=== PATIENT | male | born 1965 | race Caucasian/White ===

== ENCOUNTER 2022-07-03 19:47 | Observation (INO) ==
[2022-07-03 20:00] VITALS: BMI 20.9
--- NOTE | 2022-07-03 20:07 | DR.AMS ---
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; now laying with eyes closed and opens them; speech is clear, answers all questions except year; knows day of week, 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, president, his ; has a chronic cough; has had chills but no fever for several days; no dysuria or hematuria Complaint Chief Complaint:: states" He has been throwing up today and he is really disoriented since this afternoon" COVID-19 Coronavirus risk:travel/contact w/high risk person: No Has patient experienced Coronavirus symptoms: No Source History Provided: Patient Mode of Arrival Mode of Arrival: Wheelchair Timing Onset of Chief Complaint: 07/03/22 PMH PMH Past Medical History: Yes Past Medical History: Depression, Dyslipidemia, GERD and Hypertension Past Surgical History: Yes Surgical History: Appendectomy, Bowel Resection, Ortho Surgery and Tonsillectomy Past Surgical History Comment: neck 8 weeks ago Family History History of Family Medical Conditions: No Social History Does patient currently use any type of tobacco product: Yes Have you used tobacco products in the last 12 months: Yes Type of Tobacco Use: Cigarettes Does any household member use tobacco: No Alcohol Use: DAILY Do you use any recreational Drugs:: No Lives With: Spouse Lives Where: Home Travel Risk Coronavirus risk:travel/contact w/high risk person: No Has patient experienced Coronavirus symptoms: No Infectious screening In the last 2 months have you had wt loss of >10#?: NO Have you had fever, night sweats or hemotysis?: No Have you traveled outside the country in the last 6 months?: No Isolation: Standard ROS Review of Systems Constitutional: See HPI and Chills Eyes: No Symptoms Reported ENTM: No Symptoms Reported Respiratoy: No Symptoms Reported Cardiovascular: No Symptoms Reported Gastrointestinal/Abdominal: See HPI, Nausea and Vomiting Genitourinary: No Symptoms Reported Musculoskeletal: No Symptoms Reported Integumentary: No Symptoms Reported Hematologic/Lymphatic: No Symptoms Reported Endocrine: No Symptoms Reported Psychiatric: No Symptoms Reported PE Vitals Vital Signs: Temp Pulse Resp BP BP Pulse Ox O2 Del Method 07/03/22 23:00 58 L 99 07/03/22 23:00 165/88 07/03/22 22:45 60 98 07/03/22 22:30 173/87 07/03/22 22:30 61 98 07/03/22 22:30 173/87 07/03/22 22:15 63 97 07/03/22 22:00 66 97 07/03/22 22:00 165/91 07/03/22 21:45 68 97 07/03/22 21:42 70 97 07/03/22 21:30 150/86 07/03/22 21:20 98 07/03/22 21:15 68 98 07/03/22 21:00 69 97 07/03/22 21:00 154/83 07/03/22 20:45 99 07/03/22 20:30 64 99 07/03/22 20:30 159/83 07/03/22 20:15 72 99 07/03/22 20:00 67 99 07/03/22 20:00 167/89 07/03/22 19:56 78 99 07/03/22 19:56 189/87 07/03/22 19:55 78 99 07/03/22 19:48 98.1 F 72 18 167/99 98 Room Air 06/29/22 18:35 123/75 06/29/22 18:30 123/75 General Limitations: Language Barrier General Appearance: Alert Head Head Exam: Normal Inspection Eyes Eye exam: Normal Appearance ENT ENT Exam: Normal Exam External Ear Exam: Normal External Inspection Nose Exam: Normal Nose Exam Mouth Exam: Normal Inspection Throat Exam: Normal Inspection Neck Neck Exam: Normal Inspection Chest Chest Inspection: Normal Inspection Respiratory Respiratory Exam: Normal Lung Sounds Bilat Cardiovascular Cardiovascular Exam: Regular Rate and Normal Rhythm Abdominal Exam Abdominal Exam: Normal Inspection, Normal Bowel Sounds and Soft Extremities Extremities Exam: Normal Inspection Back Back Exam: Normal Inspection Neurological Neurological Exam: Alert and Oriented X3 Psychological Psychiatric Exam: Normal Affect and Normal Mood Skin Skin Exam: Warm, Dry, Intact and Normal Color COURSE Consultation Call Returned: 23:14 (Dr Gregg accepts admission) ROR Labs Reviewed Laboratory Results Reviewed?: Yes Result Diagrams: 07/03/22 20:06 07/03/22 20:06 Laboratory: WBC 9.5 X10^3/uL (3.6-10.0) 07/03/22 20:06 RBC 3.56 X10^6/uL (4.7-6.0) L 07/03/22 20:06 Hgb 13.1 g/dL (13.5-18.0) L 07/03/22 20:06 Hct 36.6 % (42.0-54.0) L 07/03/22 20:06 MCV 103.0 fL (80.0-100.0) H 07/03/22 20:06 MCH 36.8 pg (27.0-34.0) H 07/03/22 20:06 MCHC 35.7 g/dL (33.0-35.0) H 07/03/22 20:06 RDW 12.0 % (11.6-16.5) 07/03/22 20:06 Plt Count 169 X10^3/uL (150.0-450.0) 07/03/22 20:06 MPV 7.9 fL (7.4-11.0) 07/03/22 20:06 Neut % (Auto) 89.4 % (42.0-75.0) H 07/03/22 20:06 Lymph % (Auto) 2.8 % (21.0-51.0) L 07/03/22 20:06 [place] % (Auto) 7.1 % (0.0-13.0) 07/03/22 20:06 Eos % (Auto) 0.4 % (0.9-2.9) L 07/03/22 20:06 Baso % (Auto) 0.3 % (0.2-1.0) 07/03/22 20:06 Neut # (Auto) 8.5 x10^3/uL (2.2-4.8) H 07/03/22 20:06 Lymph # (Auto) 0.3 X10^3/uL (1.3-2.9) L 07/03/22 20:06 [place] # (Auto) 0.7 x10^3/uL (0.3-0.8) 07/03/22 20:06 Eos # (Auto) 0.0 x10^3/uL (0.0-0.2) 07/03/22 20:06 Baso # (Auto) 0.0 X10^3/uL (0.0-0.1) 07/03/22 20:06 Absolute Nucleated RBC 0.0 /100WBC 07/03/22 20:06 Sodium 130 mmol/L (136-145) L 07/03/22 20:06 Corrected Sodium 130 mmol/L (136-145) L 07/03/22 20:06 Potassium 3.4 mmol/L (3.5-5.1) L 07/03/22 20:06 Chloride 94 mmol/L (98-107) L 07/03/22 20:06 Carbon Dioxide 24.7 mmol/L (21-32) 07/03/22 20:06 BUN 5 mg/dL (7-18) L 07/03/22 20:06 Creatinine 0.96 mg/dL (0.70-1.30) 07/03/22 20:06 Est GFR (MDRD) Af Amer > 60 (>60) 07/03/22 20:06 Est GFR (MDRD) Non-Af > 60 (>60) 07/03/22 20:06 Glucose 112 mg/dL (65-99) H 07/03/22 20:06 Calcium 8.6 mg/dL (8.5-10.1) 07/03/22 20:06 Corrected Calcium TNP 07/03/22 20:06 Total Bilirubin 0.50 mg/dL (0.2-1.0) 07/03/22 20:06 AST 78 Units/L (15-37) H 07/03/22 20:06 ALT 125 Units/L (12-78) H 07/03/22 20:06 Alkaline Phosphatase 134 Units/L (46-116) H 07/03/22 20:06 Total Protein 6.8 g/dL (6.4-8.2) 07/03/22 20:06 Albumin 3.7 g/dL (3.4-5.0) 07/03/22 20:06 Globulin 3.1 g/dL (2.5-4.5) 07/03/22 20:06 Albumin/Globulin Ratio 1.2 Ratio (1.1-2.1) 07/03/22 20:06 Lipase 923 Units/L (73-393) H 07/03/22 20:06 Specimen Type Clean catch urine 07/03/22 20:16 Urine Color Yellow (YELLOW) 07/03/22 20:16 Urine Appearance Clear (CLEAR) 07/03/22 20:16 Urine pH 6.0 (5.0 - 8.0) 07/03/22 20:16 Ur Specific [place] 1.015 (1.000-1.030) 07/03/22 20:16 Urine Protein 1+ (NEGATIVE) 07/03/22 20:16 Urine Glucose (UA) Negative (NEGATIVE) 07/03/22 20:16 Urine Ketones Negative (NEGATIVE) 07/03/22 20:16 Urine Blood Negative (NEGATIVE) 07/03/22 20:16 Urine Nitrite Negative (NEGATIVE) 07/03/22 20:16 Urine Bilirubin Negative (NEGATIVE) 07/03/22 20:16 Urine Urobilinogen Normal (NORMAL) 07/03/22 20:16 Ur Leukocyte Esterase Negative (NEGATIVE) 07/03/22 20:16 Urine RBC 0-2 /HPF (0-3) 07/03/22 20:16 Urine WBC None seen /HPF (0-5) 07/03/22 20:16 Ur Squamous Epith Cells Rare /HPF (NEGATIVE) 07/03/22 20:16 Urine Bacteria Negative /HPF (NEGATIVE) 07/03/22 20:16 Urine Mucus Rare /HPF (NEGATIVE) 07/03/22 20:16 Ur Culture Indicated? No/not indicated 07/03/22 20:16 SARS CoV-2 RNA Rapid CATHY Negative (NEGATIVE) 07/03/22 20:34 XRAY XRAY Interpreted by: Radiologist X-ray Results: ct brain: 1. No acute intracranial abnormality. 2. Generalized atrophy and small vessel ischemic disease. 3. Acute on chronic bilateral maxillary sinusitis. ct abd/pelvis: 1. Normal appearing pancreas. 2. Diffuse hepatic steatosis. 3. Bilateral adrenal nodules probably representing adenomas and 6 month follow- up may be helpful to document stability. 4. No other significant abnormality identified. Opioid Opioid Risk Tool Age (Luis Daniel box if 16-45): No History of Preadolescent Sexual Abuse: No Total: 0 Total Score Risk Category: Low Risk Copyright: [facility] predicting aberrant behaviors Discharge Plan Diagnosis Discharge Problem: Acute pancreatitis, Alcohol abuse Discharge Plan Patient Disposition: 09 ADMITTED INPATIENT Condition: Stable
[2022-07-03 20:19] LABS: BASOPHILS % (AUTO) 0.3 % (0.2-1.0); EOSINOPHILS % (AUTO) 0.4 % (0.9-2.9); HEMATOCRIT 36.6 % (42.0-54.0); HEMOGLOBIN 13.1 g/dL (13.5-18.0); LYMPHOCYTES # (AUTO) 0.3 X10^3/uL (1.3-2.9); LYMPHOCYTES % (AUTO) 2.8 % (21.0-51.0); MEAN CORPUSCULAR HEMOGLOBIN 36.8 pg (27.0-34.0); MEAN CORPUSCULAR HGB CONC 35.7 g/dL (33.0-35.0); MEAN PLATELET VOLUME 7.9 fL (7.4-11.0); MONOCYTES # (AUTO) 0.7 x10^3/uL (0.3-0.8); MONOCYTES % (AUTO) 7.1 % (0.0-13.0); NEUTROPHILS # (AUTO) 8.5 x10^3/uL (2.2-4.8); NEUTROPHILS % (AUTO) 89.4 % (42.0-75.0); RED BLOOD COUNT 3.56 X10^6/uL (4.7-6.0); WHITE BLOOD COUNT 9.5 X10^3/uL (3.6-10.0)
[2022-07-03 20:23] LABS: BILIRUBIN,URINE NEGATIVE (NEGATIVE); BLOOD/HEMOGLOBIN,URINE NEGATIVE (NEGATIVE); GLUCOSE, URINE NEGATIVE (NEGATIVE); KETONES,URINE NEGATIVE (NEGATIVE); LEUKOCYTE ESTERASE ,URINE NEGATIVE (NEGATIVE); NITRITES,URINE NEGATIVE (NEGATIVE); PROTEIN,URINE 1+ (NEGATIVE); UROBILINOGEN,URINE NORMAL (NORMAL)
[2022-07-03 20:30] LABS: APPEARANCE,URINE CLEAR (CLEAR); BACTERIA,URINE NEGATIVE /HPF (NEGATIVE); COLOR,URINE YELLOW (YELLOW); RBC,URINE 0-2 /HPF (0-3); SQUAMOUS EPITHELIAL CELL,UR RARE /HPF (NEGATIVE)
[2022-07-03 20:31] LABS: ALANINE AMINOTRANSFERASE 125 Units/L (12-78); ALBUMIN 3.7 g/dL (3.4-5.0); ALKALINE PHOSPHATASE 134 Units/L (46-116); ASPARTATE AMINO TRANSFERASE 78 Units/L (15-37); BLOOD UREA NITROGEN 5 mg/dL (7-18); CALCIUM 8.6 mg/dL (8.5-10.1); CARBON DIOXIDE 24.7 mmol/L (21-32); CHLORIDE 94 mmol/L (98-107); COR NA(FOR HYPERGLY) 130 mmol/L (136-145); CREATININE 0.96 mg/dL (0.70-1.30); SODIUM 130 mmol/L (136-145); TOTAL PROTEIN 6.8 g/dL (6.4-8.2); eGFR NON BLACK RACES > 60 (>60)
[2022-07-03] MEDS ORDERED: NS 1,000 ML IV 1,000 ML IV ONE (21:10)
[2022-07-03] MEDS ORDERED: NS 1,000 ML IV 1,000 ML ONE ×2 (21:14→23:16)
[2022-07-03] MEDS ORDERED: NS 100 ML IV 100 ML ONE (21:15)
--- NOTE | 2022-07-03 21:16 | CT ---
HISTORYDIZZINESS, CONFUSIONSTUDYBRAIN W/O CONCOMPARISONNoneTECHNIQUEMult iple axial images of the head without contrast. Dose reduction techniques including Automated Exposure Control (AEC) and adjustment of mA and kV were utilized.Contrast: NoneFINDINGSBRAIN PARENCHYMA: No acute hemorrhage, infarct, mass, or mass effect.Lockett-white differentiation is maintained.Scattered white matter chronic small vessel ischemic changes.VENTRICLES/EXTRA-AXIAL SPACES: Unremarkable size and configuration. No hydrocephalus or extra-axial fluid collections.EXTRACRANIAL STRUCTURES:Unremarkable bones and soft tissues. Mastoid air cells and middle ear cavities are clear. There are air-fluid levels in the maxillary sinuses and there is some mucosal thickening in the ethmoid. Orbits are normal.IMPRESSION1. No acute intracranial abnormality. 2. Generalized atrophy and small vessel ischemic disease. 3. Acute on chronic bilateral maxillary sinusitis.Electronically signed by: Juan Carlos Puente (Jul 03, 2022 21:15:02)
--- NOTE | 2022-07-03 22:31 | CT ---
PROCEDURE: CT Abdomen with Contrast .HISTORY: pancreatitis .TECHNIQUE: Axial images were performed through the abdomen with the administration of IV contrast with multiplanar reformations . Oral contrast was not administered. Dose reduction techniques including Automated Exposure Control (AEC) and adjustment of mA and kV were utilized .COMPARISON: None .TECHNICAL QUALITY:Satisfactory .FINDINGS:Dependent atelectasis both lung bases.Mild diffuse hepatic steatosis. Spleen and pancreas show no abnormality. Pancreas shows no pseudo cyst or dilated pancreatic duct.2.2 cm right and left adrenal nodules.Kidneys show no masses or obstruction. 1 cm left renal cortical cyst.Normal biliary tract.No ascites or pneumoperitoneum.Mild atherosclerosis aorta.No lymphadenopathy.No bowel obstruction or inflammation visualized bowel loops. Previous appendectomy.No acute bony abnormality.IMPRESSION:1. Normal appearing pancreas.2. Diffuse hepatic steatosis.3. Bilateral adrenal nodules probably representing adenomas and 6 month follow-up may be helpful to document stability.4. No other significant abnormality identified.Electronically signed by: Robel Diaz (Jul 03, 2022 22:29:09)
[2022-07-03] MEDS ORDERED: MORPHINE SULFATE INJ 2 MG INJ IVP PRN (23:06)
[2022-07-03] MEDS ORDERED: ZOFRAN INJ 4 MG VIAL IVP PRN (23:06)
[2022-07-03] MEDS ORDERED: ATIVAN 20 MG/10 ML VIAL IVP PRN (23:11)
[2022-07-03] MEDS: NS 1,000 ML IV 1,000 ML IV SCH (23:21)
[2022-07-03] MEDS ORDERED: POTASSIUM CHL 40 MEQ/NS 0.45% 500 ML IV PRN (23:58)
[2022-07-03] MEDS ORDERED: K-RIDER 10 MEQ/NS 100 ML 10 MEQ/100 ML BAG IV PRN (23:58)
[2022-07-03] MEDS ORDERED: POTASSIUM CHL 60 MEQ/NS 0.45% 500 ML IV PRN (23:58)
[2022-07-04] MEDS: MAGNESIUM SULFATE 1 GRAM/100 mL PREMIX 1 G/100 ML BAG IV PRN ×8 (00:13→07:45)
[2022-07-04] MEDS ORDERED: FLUZONE II4 or AFLURIA II4 IM ONE (00:52)
[2022-07-04 06:35] LABS: BASOPHILS % (AUTO) 0.2 % (0.2-1.0); EOSINOPHILS % (AUTO) 0.2 % (0.9-2.9); HEMATOCRIT 34.5 % (42.0-54.0); HEMOGLOBIN 12.6 g/dL (13.5-18.0); LYMPHOCYTES # (AUTO) 0.5 X10^3/uL (1.3-2.9); LYMPHOCYTES % (AUTO) 7.5 % (21.0-51.0); MEAN CORPUSCULAR HEMOGLOBIN 37.4 pg (27.0-34.0); MEAN CORPUSCULAR HGB CONC 36.5 g/dL (33.0-35.0); MEAN CORPUSCULAR VOLUME 102.5 fL (80.0-100.0); MEAN PLATELET VOLUME 8.4 fL (7.4-11.0); MONOCYTES # (AUTO) 0.6 x10^3/uL (0.3-0.8); MONOCYTES % (AUTO) 8.6 % (0.0-13.0); NEUTROPHILS # (AUTO) 5.5 x10^3/uL (2.2-4.8); NEUTROPHILS % (AUTO) 83.5 % (42.0-75.0); RED BLOOD COUNT 3.37 X10^6/uL (4.7-6.0); RED CELL DISTRIBUTION WIDTH 11.8 % (11.6-16.5); WHITE BLOOD COUNT 6.6 X10^3/uL (3.6-10.0)
[2022-07-04 06:41] LABS: ALANINE AMINOTRANSFERASE 98 Units/L (12-78); ALBUMIN 3.1 g/dL (3.4-5.0); ALKALINE PHOSPHATASE 122 Units/L (46-116); AMYLASE 127 Units/L (25-115); ASPARTATE AMINO TRANSFERASE 51 Units/L (15-37); BLOOD UREA NITROGEN 3 mg/dL (7-18); CALCIUM 8.1 mg/dL (8.5-10.1); CARBON DIOXIDE 25.3 mmol/L (21-32); CHLORIDE 102 mmol/L (98-107); COR CA(FOR HYPOALB) 8.8 mg/dL (8.5-10.1); CREATININE 0.79 mg/dL (0.70-1.30); LIPASE 604 Units/L (73-393); MAGNESIUM 2.2 mg/dL (2.0-2.9); SODIUM 138 mmol/L (136-145); TOTAL PROTEIN 6.1 g/dL (6.4-8.2); eGFR NON BLACK RACES > 60 (>60)
[2022-07-04] MEDS ORDERED: ATIVAN INJ 2 MG VIAL IVP PRN (08:00)
[2022-07-04] MEDS ORDERED: BENADRYL INJ 50 MG VIAL IVP PRN (08:07)
[2022-07-04] MEDS ORDERED: HALDOL INJ IM PRN (08:07)
[2022-07-04] MEDS ORDERED: ZESTRIL TAB 40 MG PO SCH (09:00)
[2022-07-04] MEDS: NICOTINE PATCH TD SCH (09:33)
[2022-07-04] MEDS: NS 1,000 ML IV 1,000 ML IV SCH (09:48)
[2022-07-04] MEDS: PROTONIX INJ 40 MG VIAL IVP SCH ×2 (10:00→20:01)
[2022-07-04] MEDS: ZOLOFT PO SCH (10:00)
[2022-07-04] MEDS ORDERED: ZESTRIL TAB 20 MG PO SCH ×2 (11:00→12:00)
[2022-07-04] MEDS ORDERED: ZESTRIL TAB 20 MG ONE ×2 (11:05→19:09)
[2022-07-04] MEDS: NS 1,000 ML IV 1,000 ML with MAGNESIUM SULFATE 50% INJ VIAL 1 G, MVI INJ (ADULT) 10 ML IV SCH ×3 (11:09)
[2022-07-04 13:44] LABS: ALANINE AMINOTRANSFERASE 86 Units/L (12-78); ALBUMIN 3.1 g/dL (3.4-5.0); ALKALINE PHOSPHATASE 124 Units/L (46-116); AMYLASE 140 Units/L (25-115); ASPARTATE AMINO TRANSFERASE 47 Units/L (15-37); BLOOD UREA NITROGEN 3 mg/dL (7-18); CALCIUM 7.7 mg/dL (8.5-10.1); CARBON DIOXIDE 26.6 mmol/L (21-32); CHLORIDE 103 mmol/L (98-107); COR CA(FOR HYPOALB) 8.4 mg/dL (8.5-10.1); CREATININE 0.81 mg/dL (0.70-1.30); LIPASE 621 Units/L (73-393); SODIUM 137 mmol/L (136-145); TOTAL PROTEIN 5.9 g/dL (6.4-8.2); eGFR NON BLACK RACES > 60 (>60)
--- NOTE | 2022-07-04 13:45 | DR.H&P ---
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; 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; now laying with eyes closed and opens them; speech is clear, answers all questions except year; knows day of week, 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, president, his ; has a chronic cough; has had chills but no fever for several days; no dysuria or hematuria - Past Medical History Past Medical History: Hypertension, Dyslipidemia, Depression, GERD - Past Surgical History Surgical History: Appendectomy, Bowel Resection, Tonsillectomy - Family History Family Medical History: Diabetes Mellitus, Coronary Artery Disease - Social History Does patient currently use any type of tobacco product: Yes Have you used tobacco products in the last 12 months: Yes Type of Tobacco Use: Cigarettes How many years tobacco product used: 42 Does any household member use tobacco: Yes Alcohol Use: Heavy Drug Use: Prescription Drugs - Medications Home Medications: No Known Drug Allergies Allergy (Verified 06/29/22 15:16) CONTINUE taking the following medications furosemide 20 mg tablet 20 mg PO QDAY 07/04/22 [History] lisinopril 40 mg tablet 20 mg PO QDAY 07/04/22 [History] - Review of Systems Constitutional: Malaise. denies: Fever Eyes: No Symptoms Reported ENT: No Symptoms Reported Respiratory: No Symptoms Reported Cardiovascular: No Symptoms Reported Gastrointestinal: Nausea, Vomiting Genitourinary: No Symptoms Reported Musculoskeletal: Back Pain Skin: No Symptoms Reported Neurological: Weakness, Confusion (per spouse report) - Physical Exam Vital Signs: Temperature 98.3 F Pulse Rate [Right] 69 Pulse Rate 66 Respiratory Rate 18 Blood Pressure [Left Arm] 168/82 Blood Pressure 165/88 O2 Sat by Pulse Oximetry 96 Oriented: Person, Place Eyes: Normal Ear: Normal Nose: Normal Throat: Normal Respiratory: RLL Diminished, LLL Diminished Cardiovascular: Normal. negative: Edema : Normal Auscultation: Bowel Sounds: Normal Palpation: Normal Tenderness: RUQ, Epigastric, Mild Skin: Decreased Turgur Musculoskeletal: Back:Thoracic, Back:Lumbar Psychiatric: Depression Mood Description: Calm Speech Pattern: Clear, Appropriate - Assessment/Plan (1) Acute pancreatitis Status: Acute Plan: ADMIT, NPO, GENTLE IV HYDRATION. PAIN CONTROL, ELECTROLYTE REPLACEMENT THERAPY. NAUSEA CONTROL, VERIFY HOME MEDICATIONS. STRICT I&OS, CT ABD/PELVIS OBTAINED IN ER, CT HEAD OBTAINED IN ER. NEURO CHECKS, BP MONITORING, WITHDRAWAL PRECAUTIONS (2) Hypomagnesemia Status: Acute (3) Hypertension Status: Acute (4) Acute hyponatremia Status: Acute - Allergies Allergies/Adverse Reactions: Allergies Allergy/AdvReac Type Severity Reaction Status Date / Time No Known Drug Allergies Allergy Verified 06/29/22 15:16
--- NOTE | 2022-07-04 13:51 | PCM.PROG ---
Progress Note - Progress Note for Day of Date of Exam: 07/04/22 - Subjective Subjective: PT IS 57 WM, ER ADMISSION WITH ACUTE PANCREATITIS AND SYMPTOMATIC HYPONATREMIA. PT IS CURRENTLY ON GENTLE IV HYDRATION WITH NA AT 130 THIS AM. MAGNESIUM AT 2.2 AFTER REPLACEMENT THERAPY. AMYLASE 140, LIPASE 621 WITHOUT REPORTS OF NAUSEA OR VOMITING. PLAN TO START ON ICE CHIPS TOLERATED AFTER GB US. PT IS ON OPIOID PAIN CONTROL FOR CERVICAL AND LUMBAR SPINE DDD WITH HX OF NECK AND BACK SURGERY. HE HAS MORPHINE 2MG IV ORDERED PRN FOR PAIN CONTROL. BP IS ELEVATED THIS AM AND WILL RESTART LISINOPRIL 20 BID FOR CONTROL. - Past Medical Family Social History Past Med/Fam/Surg Hx: No changes since H&P Allergies: Allergies No Known Drug Allergies Allergy (Verified 06/29/22 15:16) - Review of Systems ROS: No change since H&P - Vital Signs and I&O's Vital Signs: Temperature 98.3 F Pulse Rate [Right] 69 Pulse Rate 66 Respiratory Rate 18 Blood Pressure [Left Arm] 168/82 Blood Pressure 165/88 O2 Sat by Pulse Oximetry 96 Intake and Output: Intake & Output 07/02/22 07/03/22 07/04/22 07/05/22 11:59 11:59 11:59 11:59 Intake Total 1336 / 1336 Balance 1336 / 1336 - Physical Exam Oriented: Person, Place Eyes: Normal Ear: Normal Nose: Normal Throat: Normal Respiratory: Diminished Cardiovascular: Normal. negative: Edema : Normal Auscultation: Bowel Sounds: Normal Tenderness: RUQ, Epigastric, Mild Skin: Decreased Turgur Musculoskeletal: Back:Thoracic, Back:Lumbar Psychiatric: Depression Mood Description: Calm Speech Pattern: Clear, Appropriate - Laboratory and Diagnostics Result Diagrams: 07/04/22 05:23 07/04/22 13:08 Labs: Laboratory WBC 6.6 X10^3/uL (3.6-10.0) 07/04/22 05:23 RBC 3.37 X10^6/uL (4.7-6.0) L 07/04/22 05:23 Hgb 12.6 g/dL (13.5-18.0) L 07/04/22 05:23 Hct 34.5 % (42.0-54.0) L 07/04/22 05:23 MCV 102.5 fL (80.0-100.0) H 07/04/22 05:23 MCH 37.4 pg (27.0-34.0) H 07/04/22 05:23 MCHC 36.5 g/dL (33.0-35.0) H 07/04/22 05:23 RDW 11.8 % (11.6-16.5) 07/04/22 05:23 Plt Count 145 X10^3/uL (150.0-450.0) L 07/04/22 05:23 MPV 8.4 fL (7.4-11.0) 07/04/22 05:23 Neut % (Auto) 83.5 % (42.0-75.0) H 07/04/22 05:23 Lymph % (Auto) 7.5 % (21.0-51.0) L 07/04/22 05:23 [place] % (Auto) 8.6 % (0.0-13.0) 07/04/22 05:23 Eos % (Auto) 0.2 % (0.9-2.9) L 07/04/22 05:23 Baso % (Auto) 0.2 % (0.2-1.0) 07/04/22 05:23 Neut # (Auto) 5.5 x10^3/uL (2.2-4.8) H 07/04/22 05:23 Lymph # (Auto) 0.5 X10^3/uL (1.3-2.9) L 07/04/22 05:23 [place] # (Auto) 0.6 x10^3/uL (0.3-0.8) 07/04/22 05:23 Eos # (Auto) 0.0 x10^3/uL (0.0-0.2) 07/04/22 05:23 Baso # (Auto) 0.0 X10^3/uL (0.0-0.1) 07/04/22 05:23 Absolute Nucleated RBC 0.1 /100WBC 07/04/22 05:23 Sodium 137 mmol/L (136-145) 07/04/22 13:08 Corrected Sodium TNP 07/04/22 13:08 Potassium 3.7 mmol/L (3.5-5.1) 07/04/22 13:08 Chloride 103 mmol/L (98-107) 07/04/22 13:08 Carbon Dioxide 26.6 mmol/L (21-32) 07/04/22 13:08 BUN 3 mg/dL (7-18) L 07/04/22 13:08 Creatinine 0.81 mg/dL (0.70-1.30) 07/04/22 13:08 Est GFR (MDRD) Af Amer > 60 (>60) 07/04/22 13:08 Est GFR (MDRD) Non-Af > 60 (>60) 07/04/22 13:08 Glucose 81 mg/dL (65-99) 07/04/22 13:08 POC Glucose (mg/dL) 87 mg/dL (65-99) 07/04/22 13:40 Calcium 7.7 mg/dL (8.5-10.1) L 07/04/22 13:08 Corrected Calcium 8.4 mg/dL (8.5-10.1) L 07/04/22 13:08 Magnesium 2.0 mg/dL (2.0-2.9) 07/04/22 13:08 Total Bilirubin 0.50 mg/dL (0.2-1.0) 07/04/22 13:08 AST 47 Units/L (15-37) H 07/04/22 13:08 ALT 86 Units/L (12-78) H 07/04/22 13:08 Alkaline Phosphatase 124 Units/L (46-116) H 07/04/22 13:08 Ammonia 23 umol/L (11-32) 07/03/22 23:22 Total Protein 5.9 g/dL (6.4-8.2) L 07/04/22 13:08 Albumin 3.1 g/dL (3.4-5.0) L 07/04/22 13:08 Globulin 2.8 g/dL (2.5-4.5) 07/04/22 13:08 Albumin/Globulin Ratio 1.1 Ratio (1.1-2.1) 07/04/22 13:08 Amylase 140 Units/L (25-115) H 07/04/22 13:08 Lipase 621 Units/L (73-393) H 07/04/22 13:08 Specimen Type Clean catch urine 07/03/22 20:16 Urine Color Yellow (YELLOW) 07/03/22 20:16 Urine Appearance Clear (CLEAR) 07/03/22 20:16 Urine pH 6.0 (5.0 - 8.0) 07/03/22 20:16 Ur Specific [place] 1.015 (1.000-1.030) 07/03/22 20:16 Urine Protein 1+ (NEGATIVE) 07/03/22 20:16 Urine Glucose (UA) Negative (NEGATIVE) 07/03/22 20:16 Urine Ketones Negative (NEGATIVE) 07/03/22 20:16 Urine Blood Negative (NEGATIVE) 07/03/22 20:16 Urine Nitrite Negative (NEGATIVE) 07/03/22 20:16 Urine Bilirubin Negative (NEGATIVE) 07/03/22 20:16 Urine Urobilinogen Normal (NORMAL) 07/03/22 20:16 Ur Leukocyte Esterase Negative (NEGATIVE) 07/03/22 20:16 Urine RBC 0-2 /HPF (0-3) 07/03/22 20:16 Urine WBC None seen /HPF (0-5) 07/03/22 20:16 Ur Squamous Epith Cells Rare /HPF (NEGATIVE) 07/03/22 20:16 Urine Bacteria Negative /HPF (NEGATIVE) 07/03/22 20:16 Urine Mucus Rare /HPF (NEGATIVE) 07/03/22 20:16 Ur Culture Indicated? No/not indicated 07/03/22 20:16 SARS CoV-2 RNA Rapid CATHY Negative (NEGATIVE) 07/03/22 20:34 - Plan (1) Acute pancreatitis Status: Acute Plan: NPO, GENTLE IV HYDRATION. PAIN CONTROL, ELECTROLYTE REPLACEMENT THERAPY. NAUSEA CONTROL, VERIFY HOME MEDICATIONS. STRICT I&OS, CT ABD/PELVIS OBTAINED IN ER, CT HEAD OBTAINED IN ER. NEURO CHECKS, BP MONITORING, WITHDRAWAL PRECAUTIONS (2) Hypomagnesemia Status: Acute (3) Hypertension Status: Acute (4) Acute hyponatremia Status: Acute
[2022-07-04] MEDS: MORPHINE SULFATE INJ 2 MG INJ IVP PRN ×3 (14:55→23:18)
[2022-07-04] MEDS: ZESTRIL TAB 20 MG PO SCH (20:01)
[2022-07-05] MEDS: MORPHINE SULFATE INJ 2 MG INJ IVP PRN ×2 (03:53→08:11)
[2022-07-05 05:40] LABS: BASOPHILS % (AUTO) 0.6 % (0.2-1.0); EOSINOPHILS % (AUTO) 0.4 % (0.9-2.9); HEMATOCRIT 35.4 % (42.0-54.0); HEMOGLOBIN 12.4 g/dL (13.5-18.0); LYMPHOCYTES # (AUTO) 0.3 X10^3/uL (1.3-2.9); LYMPHOCYTES % (AUTO) 5.6 % (21.0-51.0); MEAN CORPUSCULAR HEMOGLOBIN 36.4 pg (27.0-34.0); MEAN CORPUSCULAR HGB CONC 35.1 g/dL (33.0-35.0); MEAN CORPUSCULAR VOLUME 103.8 fL (80.0-100.0); MEAN PLATELET VOLUME 8.7 fL (7.4-11.0); MONOCYTES # (AUTO) 0.4 x10^3/uL (0.3-0.8); MONOCYTES % (AUTO) 7.5 % (0.0-13.0); NEUTROPHILS # (AUTO) 4.9 x10^3/uL (2.2-4.8); NEUTROPHILS % (AUTO) 85.9 % (42.0-75.0); RED BLOOD COUNT 3.41 X10^6/uL (4.7-6.0); RED CELL DISTRIBUTION WIDTH 12.2 % (11.6-16.5); WHITE BLOOD COUNT 5.7 X10^3/uL (3.6-10.0)
[2022-07-05 05:54] LABS: ALANINE AMINOTRANSFERASE 82 Units/L (12-78); ALBUMIN 3.2 g/dL (3.4-5.0); ALKALINE PHOSPHATASE 124 Units/L (46-116); AMYLASE 137 Units/L (25-115); ASPARTATE AMINO TRANSFERASE 46 Units/L (15-37); BLOOD UREA NITROGEN 7 mg/dL (7-18); CALCIUM 7.9 mg/dL (8.5-10.1); CARBON DIOXIDE 21.9 mmol/L (21-32); CHLORIDE 105 mmol/L (98-107); COR CA(FOR HYPOALB) 8.5 mg/dL (8.5-10.1); LIPASE 502 Units/L (73-393); SODIUM 140 mmol/L (136-145); TOTAL PROTEIN 6.1 g/dL (6.4-8.2); eGFR NON BLACK RACES > 60 (>60)
[2022-07-05] MEDS ORDERED: D50W ABBOJECT SYR IV ONE (06:14)
[2022-07-05] MEDS: MAGNESIUM SULFATE 1 GRAM/100 mL PREMIX 1 G/100 ML BAG IV PRN ×2 (06:15→09:23)
[2022-07-05] MEDS ORDERED: D50W ABBOJECT SYR ONE (06:16)
[2022-07-05] MEDS ORDERED: ZESTRIL TAB 20 MG ONE (07:43)
[2022-07-05] MEDS: PROTONIX INJ 40 MG VIAL IVP SCH (08:04)
[2022-07-05] MEDS: ZESTRIL TAB 20 MG PO SCH (08:04)
[2022-07-05] MEDS: ZOLOFT PO SCH (08:05)
[2022-07-05] MEDS: NICOTINE PATCH TD SCH (08:06)
[2022-07-05] MEDS: NS 1,000 ML IV 1,000 ML with MAGNESIUM SULFATE 50% INJ VIAL 1 G, MVI INJ (ADULT) 10 ML IV SCH ×3 (09:22)
[2022-07-05] MEDS ORDERED: ZANAFLEX PO SCH (10:00)
[2022-07-05] MEDS ORDERED: ZANAFLEX PO PRN (10:15)
--- NOTE | 2022-07-05 10:52 | US ---
HISTORY? Pancreatitis?STUDYLimited abdominal ultrasoundCOMPARISONCT abdomen 07/03/2022TECHNIQUEMultiple sonographic images of the abdomen were obtained per protocol.FINDINGSThe liver is diffusely heterogeneous, but grossly normal in size and contour. No liver mass demonstrated. No biliary dilation observed; the common duct measures 4 mm in diameter. There is no cholelithiasis, gallbladder distention, wall thickening, or pericholecystic edema. No sonographic Sotomayor sign reported. The right kidney measures 11 cm in length. No hydronephrosis. The pancreas was obscured by bowel gas.IMPRESSIONHepatic steatosis.Otherwise unremarkable right upper quadrant ultrasound as visualized. The pancreas was obscured.Electronically signed by: LINDSEY JACOBS (Jul 05, 2022 10:51:01)
[2022-07-05 12:38] VITALS: BP 110/65
== END 2022-07-05 12:55 | disposition home or self-care (01) ==
LOC: ER 19:47 → MED/SURG 19:47
PROVIDERS: ADMIT Internal Medicine; ATTEND Internal Medicine
DX: K85.20 Alcohol induced acute pancreatitis without necrosis or infection; F10.188 Alcohol abuse with other alcohol-induced disorder; K86.0 Alcohol-induced chronic pancreatitis; Z20.822 Contact with and (suspected) exposure to COVID-19; M50.30 Other cervical disc degeneration, unspecified cervical region; K76.0 Fatty (change of) liver, not elsewhere classified; M51.36 Other intervertebral disc degeneration, lumbar region; E27.8 Other specified disorders of adrenal gland; E83.42 Hypomagnesemia